=== PATIENT | male | born 1945 | race Caucasian/White ===

== ENCOUNTER 2017-04-12 14:43 | Observation (INO) | payer MEDICARE, BC ==
[~2017-04-12] VITALS: Ht 182.9 cm; Wt 105.0 kg
[2017-04-12] MEDS ORDERED: ASPIRIN81 MG PO (18:33)
[2017-04-12] MEDS ORDERED: ZEBETA10 MG PO (18:40)
[2017-04-12] MEDS ORDERED: CENTRUM SILVER1 EAC1 PO (18:41)
[2017-04-12] MEDS ORDERED: GLUCOSAMINE &1 EACH PO (18:42)
[2017-04-12] MEDS ORDERED: HYDROCODON-ACE1 EAC4 PO (18:43)
[2017-04-12] MEDS ORDERED: NORCO 325-5 MG1 TAB PO (18:43)
[2017-04-12] MEDS ORDERED: ANTI-ITCH CREME28 GM TOP (18:45)
[2017-04-12] MEDS ORDERED: COZAAR100 MG PO (18:45)
[2017-04-12] MEDS ORDERED: REPATHA PU420 MG/3.5 IM (18:47)
[2017-04-12] MEDS ORDERED: ULTRAM50 MG PO (18:48)
[2017-04-12] MEDS ORDERED: VITAMIN D31000 UNI1 PO (18:49)
[2017-04-12] MEDS ORDERED: COUMADIN1 MG PO (18:50)
[2017-04-12] MEDS ORDERED: MELATONIN5 MG PO (18:51)
[2017-04-12] MEDS ORDERED: KLONOPIN0.5 MG PO (18:54)
[2017-04-13] MEDS ORDERED: 8 HOUR PAIN RE650 MG PO (08:53)
== END 2017-04-13 12:10 | disposition short-term general hospital (02) ==
LOC: ER 14:43 → OBS 19:12 → IP 19:12
PROVIDERS: ADMIT Family Medicine
DX: R19.09 Other intra-abdominal and pelvic swelling, mass and lump (principal); R10.30 Lower abdominal pain, unspecified; E86.0 Dehydration; K63.89 Other specified diseases of intestine; K59.00 Constipation, unspecified; R42 Dizziness and giddiness; I25.10 Atherosclerotic heart disease of native coronary artery without angina pectoris; G89.29 Other chronic pain; M54.5 Low back pain; E78.5 Hyperlipidemia, unspecified; I10 Essential (primary) hypertension; M19.90 Unspecified osteoarthritis, unspecified site; E55.9 Vitamin D deficiency, unspecified; Z86.711 Personal history of pulmonary embolism; Z79.01 Long term (current) use of anticoagulants; Z95.5 Presence of coronary angioplasty implant and graft; Z95.1 Presence of aortocoronary bypass graft; Z98.1 Arthrodesis status; Z98.52 Vasectomy status
CPT/HCPCS: G0378; J0295; J1170; J2270; J2405; J3430; Q9963; Q9967